=== PATIENT | female | born 1985 | race Caucasian/White ===

== ENCOUNTER → 2016-06-26 | Outpatient (CLI) | payer BC ==
[~2016-06-26] MED LIST: AMT/25 PO; BCP; MULT-506 PO; NAPR1TAB9 PO; PRENTAB26 PO
== END | disposition home or self-care (01) ==
LOC: C.PATHSPEC 13:37
PROVIDERS: ATTEND Dermatology
DX: D22.5 Melanocytic nevi of trunk (principal)

== ENCOUNTER → 2017-02-25 | Outpatient (CLI) | payer BC | END | disposition home or self-care (01) | LOC: C.PAPS 12:00 | PROVIDERS: ATTEND Physician Assistant | DX: Z01.419 Encounter for gynecological examination (general) (routine) without abnormal findings (principal) ==

== ENCOUNTER → 2017-03-11 | Outpatient (CLI) | payer BC ==
--- NOTE | 2017-03-11 15:45 | MAMMOGRAPHY REPORT ---
UNILATERAL LEFT DIGITAL DIAGNOSTIC MAMMOGRAM TOMOSYNTHESIS WITH CAD AND TARGETED LEFT ULTRASOUND: 03/2017 CLINICAL HISTORY: 31 year-old female presents with a prominent whitish raised papule along the latera l aspect of the left areola. It has been increasingly prominent over 1 year. No discharge or surrou nding erythema. Family history of breast cancer = grandmother and aunt. TECHNIQUE: Left breast tomosynthesis in addition to standard 2D mammography was performed. Current st udy was also evaluated with a Computer Aided Detection (CAD) system. COMPARISON: No prior exams were available for comparison. BREAST COMPOSITION: The tissue of the left breast is extremely dense, which lowers the sensitivity o f mammography. FINDINGS: A triangular shaped palpable marker overlies the 3:00 anterior left breast/areola denoting the palpable lump pointed out by the patient. There is no evidence of a suspicious mass, architectu ral distortion or cluster of microcalcifications within the left breast. Targeted ultrasound was performed in the 3:00 periareolar left breast in the area of visible raised w hitish papule pointed out by the patient. On ultrasound, in the 3:00 periareolar left breast, there is focal thickening of the areola within internal mixed echogenicity cystic-appearing mass measuring 3.8 x 3.8 x 4.2 mm. This does not appear to connect up to ducts leading to the nipple. It does not extend into the breast parenchyma deep to the dermis. This most likely represents a prominent or inf lamed Colon gland or possibly an epidermal inclusion cyst. There is no evidence of a suspicious solid or cystic mass. IMPRESSION: ACR BI-RADS CATEGORY 2: BENIGN, TARGETED ULTRASOUND ACR BI-RADS CATEGORY 2: BENIGN The 2 mm raised whitish papule in the 3:00 periareolar left breast post likely represents a prominent or inflamed Colon gland or possibly an epidermal inclusion cyst. There is no mammographic or t argeted sonographic evidence of malignancy. Recommend continued clinical follow-up, as biopsy of a c linically suspicious mass should not be precluded by negative imaging. Also recommend routine screen ing mammography, once age-appropriate. Approximately 10% of breast cancers are not detected with mammography. A negative mammographic report should not delay biopsy if a clinically suggestive mass is present. Cara Lord M.D. ay/:03/11/2017 14:45:20 Communicable Disease Specialist: Tiffany Alfaro, [facility] letter sent: Normal / BI-RADS Code: ACR BI-RADS Category 2: Benign Ultrasound BI-RADS: ACR BI-RADS Category 2: Benign
== END | disposition home or self-care (01) ==
LOC: C.MAMM 13:52
PROVIDERS: ATTEND Physician Assistant
DX: N63.20 Unspecified lump in the left breast, unspecified quadrant (principal); N64.59 Other signs and symptoms in breast

== ENCOUNTER → 2017-07-03 | Outpatient (CLI) | payer OTHER | END | disposition home or self-care (01) | LOC: C.PATHSPEC 12:03 | PROVIDERS: ATTEND Plastic Surgery | DX: L72.0 Epidermal cyst (principal) ==

== ENCOUNTER → 2018-01-23 | Outpatient (CLI) | payer OTHER ==
[~2018-01-23] MED LIST changes: -AMT/25 PO; -BCP; +GADAVIST IV PRN; -MULT-506 PO; -NAPR1TAB9 PO
--- NOTE | 2018-01-23 15:27 | DIAGNOSTIC IMAGING REPORT ---
CERVICAL SPINE COMBO CLINICAL HISTORY: 32 years-old Female presenting with recently diagnosed with multiple sclerosis, left arm tingling now resolved. TECHNIQUE: Multisequence, multiplanar MR imaging of the cervical spine was performed before and after the administration of intravenous contrast. IV contrast: 7.5 mL of Gadavist. COMPARISON: None. FINDINGS: Localizer images: Unremarkable. Straightening of normal cervical lordosis likely positional. Vertebral bodies maintain normal height, alignment, and bone marrow signal intensity. Focal intervertebral disc desiccation with a prominent disc osteophyte complex at C5-6. This results in moderate effacement of the ventral thecal sac and left lateral recess. There is contouring of the anterior spinal cord. CSF signal intensity is preserved. Mild right and mild to moderate left neural foraminal narrowing also results. The remaining levels demonstrate no evidence of spinal canal or neural foraminal narrowing. Postcontrast imaging is significantly degraded by motion artifact. This limits evaluation for active demyelination. Cervical spinal cord demonstrates multifocal sites of abnormal signal intensity. Along the central anterior cord at the level of C3-4 is a 13 mm long lesion. Additional lesion at the level of C4-5, which is also along the anterior central cord. There is a separate central lesion at this level, which is not as extensive in its craniocaudal length. Additional lesion along the right anterior lateral spinal cord extending along the level of C4-5 best seen on axial images (series 6 images 18-23). Additional lesion at the level of C4-5 at the left anterolateral aspect of the cord (series 6 images 21-22). This is more limited in its length. Additional limited lesions suggested at the right anterolateral cord at the level of C7 (series 6 image 27). These lesions do not grossly enhance. Craniocervical junction normal. Paraspinal musculature normal. Remaining visualized soft tissues within normal limits. IMPRESSION: 1. Postcontrast imaging is significantly degraded by motion artifact. This limits evaluation for active demyelination. Allowing for this, multifocal cervical spinal cord lesions extending from C3 through C7 as detailed above without demonstrable enhancement to suggest active demyelination. 2. Focal degenerative changes at C5-6 with spinal canal narrowing. No convincing evidence of spinal cord impingement. Left greater than right neural foraminal narrowing at this level. Electronically signed by: Toni Gonzalez M.D. 01/23/2018 3:26 PM Dictated Date/Time: 01/23/2018 3:17 PM
== END | disposition home or self-care (01) ==
LOC: C.MRI 13:39
PROVIDERS: ATTEND Physician Assistant
DX: G35 Multiple sclerosis (principal)

== ENCOUNTER 2019-12-14 02:27 | Inpatient (IN) ==
[2019-12-14] MEDS ORDERED: OXYTOCIN 30 UNITS/500 ML BAG IV PRN (02:48)
[2019-12-14] MEDS ORDERED: LACTATED RINGER'S 1,000 ML IV PRN (02:48)
--- NOTE | 2019-12-14 03:19 | Delivery Summary ---
Vaginal Delivery Summary Date of Service December 14, 2019 Vaginal Delivery Summary DIAGNOSES: 1. Drake intrauterine at 38w5d gestation. 2. Precipitous spontaneous labor, SROM. 3. Group B Streptococcus Neg 4. AT3 Deficiency, MS. PROCEDURE: Spontaneous vaginal delivery and repair of midline episiotomy / second degree laceration. SURGEON: Shanti Hein MD. ANCILLARY SERVICES MANAGER THERAPY: None. ESTIMATED BLOOD LOSS: 300 mL. COMPLICATIONS: None. PLACENTA: Spontaneous and intact with a 3-vessel cord. DISPOSITION: Stable to labor and delivery. DESCRIPTION: Roxanne arrived to L&D after calling to note contractions Q3min for one hour at home. She was 8cm on arrival, and shortly thereafter SROM occurred followed by onset of urge to push. I arrived at the bedside to find her already complete with strong urge to push. Her last heparin dose was this evening, COVID was known to be negative, and attempt to place IV had been unsuccessful. The patient was quickly prepped and she pushed well and brought the head to in OA position. A prolonged was noted and with the patient's permission, infiltration of lidocaine into the perineal skin was done and a small midline episiotomy was created. The infant's head was then allowed to deliver with the next active push, with the perineum protected during this time. The shoulders delivered easily with a maternal pushing effort. There was no nuchal cord. The left shoulder was anterior. The shoulders and body delivered without any difficulty, and the infant was placed on the maternal abdomen. It was vigorous and moving all extremities, and making respiratory efforts. The cord was doubly clamped by the MD and then cut by the FOB. The placenta delivered spontaneously and was noted to be intact and with a 3VC. The cervix, vagina and perineum were examined and were found to have the equivalent of a second degree laceration, which was mostly the episiotomy and perhaps an additional centimeter of extension. This was repaired in the usual manner with vicryl suture after infiltration with a total of 25cc 1% plain lidocaine. The fundus was firm and lochia minimal immediately after delivery.
[2019-12-14 03:39] LABS: Hematocrit (blood only) 42.2 % (37-47); Hemoglobin 14.3 g/dL (12.0-16.0); Mean Corpuscular Hemoglobin 32.6 pg (25-34); Mean Corpuscular Volume 96.1 fL (80-100); Mean Platelet Volume 11.1 fL (7.4-10.4); Platelet Count 180 K/uL (130-400); RDW Coefficient of Variation 13.2 % (11.5-14.5); RDW Standard Deviation 46.7 fL (36.4-46.3); Red Blood Count 4.39 M/uL (4.2-5.4); White Blood Count 9.59 K/uL (4.8-10.8)
[2019-12-14] MEDS ORDERED: DIPHTHERIA/TETANUS/PERTUSSIS 0.5 ML SYR/VIAL IM ONE (03:43)
[2019-12-14] MEDS ORDERED: HYDROCORTISONE ACETATE 25 MG SUPP PR PRN (03:43)
[2019-12-14] MEDS ORDERED: OXYCODONE/ACETAMINOPHEN 5mg/325mg TAB PO PRN (03:43)
[2019-12-14] MEDS ORDERED: ACETAMINOPHEN 325 MG TAB PO PRN (03:43)
[2019-12-14] MEDS ORDERED: BENZOCAINE 20% AER SPR 82.5 GM CAN EXT PRN (03:43)
[2019-12-14] MEDS ORDERED: OXYTOCIN 10 UNITS/ML VIAL IM ONE (03:43)
[2019-12-14] MEDS ORDERED: SUPERCREAM 0.870% 15 GM JAR EXT PRN (03:43)
[2019-12-14 03:44] LABS: Mean Corpuscular Hgb Conc 33.9 g/dL (32-36)
[2019-12-14] MEDS: IBUPROFEN 600 MG TAB PO PRN ×4 (03:52→20:14)
[2019-12-14] MEDS: DOCUSATE SODIUM 100 MG CAP PO SCH ×2 (09:01→20:14)
[2019-12-14] MEDS: PRENATAL VITAMIN 1 TAB PO SCH (09:01)
[2019-12-14 10:13] LABS: Creatinine Clr Calc Pharmacy 133.7 ml/min; Est GFR (African American) 128.8; Est GFR (Non-African American) 111.1
[2019-12-14] MEDS: ENOXAPARIN INJ 40 MG/0.4 ML SYR SQ SCH (12:45)
[2019-12-15] MEDS: IBUPROFEN 600 MG TAB PO PRN ×3 (03:44→16:35)
[2019-12-15 06:38] LABS: Hematocrit (blood only) 37.8 % (37-47); Hemoglobin 12.8 g/dL (12.0-16.0); Mean Corpuscular Hemoglobin 32.7 pg (25-34); Mean Corpuscular Hgb Conc 33.9 g/dL (32-36); Mean Corpuscular Volume 96.4 fL (80-100); Mean Platelet Volume 10.7 fL (7.4-10.4); Platelet Count 169 K/uL (130-400); RDW Coefficient of Variation 13.6 % (11.5-14.5); RDW Standard Deviation 47.4 fL (36.4-46.3); Red Blood Count 3.92 M/uL (4.2-5.4)
--- NOTE | 2019-12-15 07:13 | Obstetrical Progress Note ---
Date of Service <Xiang Oconnell MD - Last Filed: 12/15/19 07:13> December 15, 2019 Assessment & Plan <Xiang Oconnell MD - Last Filed: 12/15/19 07:13> (1) : PPD #1 Doing well, ambulating well, voiding well, tolerating oral intake. Continue routine care. After discharge will have follow-up in 6 weeks. Subjective <Xiang Oconnell MD - Last Filed: 12/15/19 07:13> Emiliana is a 34 y/o female ; PPD # 1 following spontaneous vaginal delivery at 38 weeks; doing well this morning; light abdominal cramping & 2/10 pain well managed on analgesics; voiding well; tolerating meals overnight and able to ambulate some; some persistent spotting with improvement this morning. Review of Systems Constitutional: denies fever, chills, sweat, headache Respiratory: denies shortness of breath, difficulty breathing Cardiac: denies chest pain, palpitations, chest pressure Breast: denies breast pain : denies dysuria Physical Exam <Xiang Oconnell MD - Last Filed: 12/15/19 07:13> General: Alert, oriented. No acute distress. Cardiac: Regular rate and rhythm, no murmurs/rubs/gallops. Respiratory: Clear to auscultation bilaterally a/p, no wheezes/rales/rhonchi. No increased work of breathing. Symmetrical chest rise. No respiratory distress. Abdomen: Soft, nontender, nondistended. Bowel sounds present. Uterus: Uterine fundus firm, palpable 1cm below umbilicus. Lower Extremities: No lower extremity edema or swelling. No deep calf pain. Chelsie's negative bilaterally. Results & Data <Xiang Oconnell MD - Last Filed: 12/15/19 07:13> Vital Signs (Past 12 Hours) Vital Signs Temp Pulse Resp BP Pulse Ox 12/14/19 23:35 36.7 C 80 16 117/75 98 12/14/19 20:05 36.7 C 84 18 123/80 <Redd Curry Jr, MD, FACOG - Last Filed: 12/15/19 07:42> Co-Signing Physician Notes Resident Physician Supervision Note: I was present with Dr. Petersen during the history and exam. I discussed the case with the resident and agree with the findings and plan as documented in the note. Any exceptions or clarifications are listed here: Patient desires d/c. Will resume Lovenox for 6 weeks pp. Prescribed by [facility]. D/C instructions given, f/u in 6 weeks for pp check. Documented By: Redd Curry Jr, MD, FACOG
[2019-12-15] MEDS: DOCUSATE SODIUM 100 MG CAP PO SCH (08:54)
[2019-12-15] MEDS: PRENATAL VITAMIN 1 TAB PO SCH (08:54)
[2019-12-15] MEDS: ENOXAPARIN INJ 40 MG/0.4 ML SYR SQ SCH (09:17)
== END 2019-12-15 19:45 | disposition home or self-care (01) | DRG 806 ==
LOC: OPB 02:27 → 4S1 02:30 → 4S2 06:13